=== PATIENT | female | born 1985 | race Caucasian/White ===

== ENCOUNTER 2017-11-26 03:52 | Emergency (ER) | payer SELFPAY ==
[~2017-11-26] VITALS: Ht 152.4 cm; Wt 54.2 kg
[2017-11-26 03:56] VITALS: BP 135/95
[2017-11-26] MEDS ORDERED: ANTIBIOTICS (04:07)
[2017-11-26] MEDS ORDERED: BACITRACIN ZINC OINT 500U/GM, 0.9 GM TP ONE (05:30)
[2017-11-26] MEDS ORDERED: BACITRACIN ZINC OINT 500U/GM, 0.9 GM ONE (05:33)
== END 2017-11-26 06:32 | disposition home or self-care (01) ==
LOC: ED 05:30
DX: Z48.01 Encounter for change or removal of surgical wound dressing (principal)
CPT/HCPCS: 99283